=== PATIENT | male | born 1960 | race American Indian/Alaskan Native ===

== ENCOUNTER 2016-10-30 13:28 | Emergency (ER) | payer BC ==
[2016-10-30 14:43] LABS: Basophils % (Auto) 0.4 % (0.0-1.8); Eosinophils % (Auto) 0.1 % (0.0-4.3); Hemoglobin 14.2 gm/dl (11.8-15.2); Mean Corpuscular HGB Conc 34 % (32-34); Mean Corpuscular Hemoglobin 32 pg (28-32); Mean Corpuscular Volume 93 fl (84-94); Platelet Count 193 K/mm3 (140-440); Red Blood Count 4.52 M/mm3 (3.65-5.03); Red Cell Distribution Width 13.3 % (13.2-15.2); White Blood Count 7.5 K/mm3 (4.5-11.0)
[2016-10-30 14:49] LABS: Anion Gap 18 mmol/L; BUN/Creatinine Ratio 12.85; Blood Urea Nitrogen 9 mg/dL (9-20); Calcium 9.1 mg/dL (8.4-10.2); Carbon Dioxide 24 mmol/L (22-30); Chloride 97.3 mmol/L (98-107); Glucose 130 mg/dL (75-100); Potassium 3.3 mmol/L (3.6-5.0); Sodium 136 mmol/L (137-145)
[2016-10-30 14:55] LABS: Bacteria,Urine 2+ /HPF (Negative); Bilirubin,Urine NEG (Negative); Blood,Urine MOD (Negative); Ketones,Urine NEG (Negative); Leukocyte Esterase,Urine MOD (Negative); Mucus,Urine 3+ /HPF; Nitrite,Urine POS (Negative)
[2016-10-30] MEDS ORDERED: LEVAQUIN PO ONE (17:18)
[2016-10-30] MEDS ORDERED: TYLENOL PO ONE (17:18)
--- NOTE | 2016-10-30 17:19 | Emergency Department Report ---
ED N/V/D HPI - General Chief complaint: Nausea/Vomiting/Diarrhea Stated complaint: VIRUS, STOOL,VOMITTING Time Seen by Provider: 10/30/16 17:12 Source: patient Mode of arrival: Ambulatory Limitations: No Limitations - History of Present Illness Initial comments: This is a pleasant 55-year-old gentleman who describes 3 day history of nausea vomiting diarrhea. He's had low-grade fevers associated with this as well. He does not report any sick contacts or questionable foods. Been feeling well prior to this. He denies significant abdominal pain he denies hematochezia sincerely with this as well. MD complaint: nausea, vomiting, abdominal pain Severity: moderate Quality: cramping Consistency: intermittent Improves with: none Worsens with: eating - Related Data Previous Rx's Medication Instructions Recorded Last Taken Type Sulfamethoxazole/Trimethoprim 1 each PO BID #14 tablet 03/19/14 Unknown Rx [Bactrim Ds] Acyclovir [Zovirax Cap] 200 mg PO 5XD 5 Days 06/24/14 Unknown Rx Ciprofloxacin HCl [Ciprofloxacin 500 mg PO Q12HR #14 tab 10/30/16 Unknown Rx TAB] Ondansetron [Zofran TAB] 4 mg PO Q8HR PRN #5 tablet 10/30/16 Unknown Rx Allergies Allergy/AdvReac Type Severity Reaction Status Date / Time No Known Allergies Allergy Unverified 03/19/14 07:46 ED Review of Systems ROS: Stated complaint: VIRUS, STOOL,VOMITTING Other details as noted in HPI Comment: All other systems reviewed and negative Constitutional: fever. denies: chills Eyes: denies: eye pain, eye discharge, vision change ENT: denies: ear pain, throat pain Respiratory: denies: cough, shortness of breath, wheezing Cardiovascular: denies: chest pain, palpitations Endocrine: no symptoms reported Gastrointestinal: nausea, vomiting, diarrhea Genitourinary: denies: urgency, dysuria Musculoskeletal: denies: back pain, joint swelling, arthralgia Skin: denies: rash, lesions Neurological: denies: headache, weakness, paresthesias Psychiatric: denies: anxiety, depression Hematological/Lymphatic: denies: easy bleeding, easy bruising ED Past Medical Hx - Past Medical History Previous Medical History?: No - Surgical History Past Surgical History?: No - Social History Smoking Status: Current Every Day Smoker Substance Use Type: Alcohol - Medications Home Medications: Home Medications Medication Instructions Recorded Confirmed Last Taken Type Sulfamethoxazole/Trimethoprim 1 each PO BID #14 tablet 03/19/14 Unknown Rx [Bactrim Ds] Acyclovir [Zovirax Cap] 200 mg PO 5XD 5 Days 06/24/14 Unknown Rx Ciprofloxacin HCl [Ciprofloxacin 500 mg PO Q12HR #14 tab 10/30/16 Unknown Rx TAB] Ondansetron [Zofran TAB] 4 mg PO Q8HR PRN #5 tablet 10/30/16 Unknown Rx ED Physical Exam - General Limitations: No Limitations General appearance: alert, in no apparent distress - Head Head exam: Present: atraumatic, normocephalic - Eye Eye exam: Present: normal appearance - ENT ENT exam: Present: normal orophraynx, mucous membranes moist - Neck Neck exam: Present: normal inspection. Absent: lymphadenopathy - Respiratory Respiratory exam: Present: normal lung sounds bilaterally. Absent: respiratory distress, wheezes - Cardiovascular Cardiovascular Exam: Present: normal rhythm, tachycardia. Absent: systolic murmur, diastolic murmur, rubs, gallop - GI/Abdominal GI/Abdominal exam: Present: soft, tenderness, normal bowel sounds. Absent: guarding, rebound - Rectal Rectal exam: Present: deferred - Extremities Exam Extremities exam: Present: normal inspection - Back Exam Back exam: Present: normal inspection - Neurological Exam Neurological exam: Present: alert, oriented X3 - Psychiatric Psychiatric exam: Present: normal affect, normal mood - Skin Skin exam: Present: warm, dry, intact, normal color. Absent: rash ED Course Vital Signs 10/30/16 10/30/16 10/30/16 13:53 14:26 14:31 Temperature 100.6 F H 99.7 F H Pulse Rate 112 H 106 H Respiratory 20 16 16 Rate Blood Pressure 141/87 Blood Pressure 121/79 [Left] O2 Sat by Pulse 99 95 96 Oximetry 10/30/16 17:50 Temperature Pulse Rate 94 H Respiratory 17 Rate Blood Pressure Blood Pressure 123/78 [Left] O2 Sat by Pulse 98 Oximetry - Reevaluation(s) Reevaluation #1: Patient is nontoxic appearing here. Abdomen is quite soft I do not suspect surgical etiology. He is euvolemic here. Labs are noted. No specific significant electron abnormalities are noted. I am inclined to treat her with antibiotics given the urinalysis as well. I am a bit surprised to see the UTI given male. We'll treat with ciprofloxacin. I did offer IV fluids. Patient declined. We'll treat with orals. I feel he is safe for home. No concerning features are appreciated. ED Medical Decision Making - Lab Data Result diagrams: 10/30/16 14:16 10/30/16 14:16 Critical care attestation.: If time is entered above; I have spent that time in minutes in the direct care of this critically ill patient, excluding procedure time. ED Disposition Clinical Impression: Gastroenteritis UTI (urinary tract infection) Qualifiers: Urinary tract infection type: acute cystitis Hematuria presence: without hematuria Qualified Code(s): N30.00 - Acute cystitis without hematuria Disposition: DISCHARGED TO HOME OR SELFCARE Is pt being admited?: No Does the pt Need Aspirin: No Condition: Stable Instructions: Urinary Tract Infection in Men (ED), Acute Nausea and Vomiting ( ED) Additional Instructions: Gradually advance diet as tolerated. Drink plenty of fluids. Take tylenol for fevers. Prescriptions: Ciprofloxacin HCl [Ciprofloxacin TAB] 500 mg PO Q12HR #14 tab Ondansetron [Zofran TAB] 4 mg PO Q8HR PRN #5 tablet PRN Reason: Nausea Referrals: PRIMARY CARE, [Primary Care Provider] - 3-5 Days Forms: Work/School Release Form(ED) Time of Disposition: 17:22
[2016-10-30] MEDS ORDERED: ZOFRAN ODT PO ONE (17:21)
[2016-10-30 17:50] VITALS: BP 123/78
== END 2016-10-30 17:55 | disposition home or self-care (01) ==
LOC: ED 13:28
DX: K52.9 Noninfective gastroenteritis and colitis, unspecified (principal); N30.00 Acute cystitis without hematuria; F17.200 Nicotine dependence, unspecified, uncomplicated
CPT/HCPCS: 36415; 80048; 81001; 85025; 87076; 87086; 87186; 99283; Q0162

== ENCOUNTER 2017-09-01 00:39 | Emergency (ER) | payer SELFPAY ==
[2017-09-01] MEDS ORDERED: TYLENOL PO ONE (01:54)
[2017-09-01] MEDS ORDERED: TYLENOL ONE (01:55)
[2017-09-01] MEDS ORDERED: ZOFRAN ODT PO ONE (07:25)
[2017-09-01] MEDS ORDERED: MOTRIN PO ONE (07:25)
--- NOTE | 2017-09-01 07:28 | Emergency Department Report ---
- General Chief Complaint: Upper Respiratory Infection Stated Complaint: FLU SX Time Seen by Provider: 09/01/17 07:24 Source: patient Mode of arrival: Ambulatory Limitations: No Limitations - History of Present Illness Initial Comments: 56-year-old male past medical history hypertension, CHF, smoker presents with complaint of 2 days of sore throat cough and intermittent nausea with chills. Patient is awake alert and oriented 3 not in acute distress. Patient is concerned he has flulike symptoms. Last episode of vomiting was yesterday. Has been able to tolerate fluids without difficulty. Has not taken any medicines for his symptoms at home. Patient denies palpitations chest pain shortness of breath, dysuria hematuria or increased urinary frequency current fever or chills or body aches but did say he was experiencing yesterday. Patient denies abdominal pain at this time. States he had one episode of diarrhea yesterday. Patient also states that he is out of his current regimen of hypertension medicines. Requesting referral to primary doctor. MD Complaint: fever, cough, sore throat, rhinorrhea, nasal congestion Onset/Timin -: days(s) Severity: moderate Context: sick contacts Associated Symptoms: fever, chills, myalgias, rhinorrhea, cough Treatments Prior to Arrival: none - Related Data Previous Rx's Medication Instructions Recorded Last Taken Type Acetaminophen [Acetaminophen TAB] 325 mg PO Q6HR PRN #30 tablet 09/01/17 Unknown Rx AtorvaSTATin [Lipitor] 40 mg PO DAILY #14 tablet 09/01/17 Unknown Rx Carvedilol 25 mg PO BID #28 tablet 09/01/17 Unknown Rx Dextromethorphan Hb/Doxylamine 10 ml PO Q6H PRN #1 liquid 09/01/17 Unknown Rx [Safetussin Pm Liquid] Furosemide [Lasix TAB] 40 mg PO DAILY #14 tablet 09/01/17 Unknown Rx Losartan [Cozaar] 100 mg PO DAILY #14 tablet 09/01/17 Unknown Rx Oseltamivir [Tamiflu] 75 mg PO BID #10 cap 09/01/17 Unknown Rx Spironolactone 25 mg PO DAILY #14 tablet 09/01/17 Unknown Rx hydrALAZINE [Apresoline TAB] 25 mg PO TID #42 tablet 09/01/17 Unknown Rx Allergies Allergy/AdvReac Type Severity Reaction Status Date / Time No Known Allergies Allergy Unverified 03/19/14 07:46 ED Review of Systems ROS: Stated complaint: FLU SX Other details as noted in HPI Constitutional: denies: chills, fever Eyes: denies: eye pain, eye discharge, vision change ENT: throat pain. denies: ear pain Respiratory: cough. denies: shortness of breath, wheezing Cardiovascular: denies: chest pain, palpitations Endocrine: no symptoms reported Gastrointestinal: nausea. denies: abdominal pain, diarrhea Genitourinary: denies: urgency, dysuria Musculoskeletal: denies: back pain, joint swelling, arthralgia Skin: denies: rash, lesions Neurological: denies: headache, weakness, paresthesias Psychiatric: denies: anxiety, depression Hematological/Lymphatic: denies: easy bleeding, easy bruising ED Past Medical Hx - Past Medical History Previous Medical History?: No Hx Hypertension: Yes - Surgical History Past Surgical History?: No - Social History Smoking Status: Current Every Day Smoker Substance Use Type: Alcohol - Medications Home Medications: Home Medications Medication Instructions Recorded Confirmed Last Taken Type Acetaminophen [Acetaminophen TAB] 325 mg PO Q6HR PRN #30 tablet 09/01/17 Unknown Rx AtorvaSTATin [Lipitor] 40 mg PO DAILY #14 tablet 09/01/17 Unknown Rx Carvedilol 25 mg PO BID #28 tablet 09/01/17 Unknown Rx Dextromethorphan Hb/Doxylamine 10 ml PO Q6H PRN #1 liquid 09/01/17 Unknown Rx [Safetussin Pm Liquid] Furosemide [Lasix TAB] 40 mg PO DAILY #14 tablet 09/01/17 Unknown Rx Losartan [Cozaar] 100 mg PO DAILY #14 tablet 09/01/17 Unknown Rx Oseltamivir [Tamiflu] 75 mg PO BID #10 cap 09/01/17 Unknown Rx Spironolactone 25 mg PO DAILY #14 tablet 09/01/17 Unknown Rx hydrALAZINE [Apresoline TAB] 25 mg PO TID #42 tablet 09/01/17 Unknown Rx ED Physical Exam - General Limitations: No Limitations General appearance: alert, in no apparent distress - Head Head exam: Present: atraumatic, normocephalic - Eye Eye exam: Present: normal appearance, PERRL, EOMI - ENT ENT exam: Present: mucous membranes moist - Expanded ENT Exam Expanded Throat exam: Positive: tonsillar erythema (some tonsillar erythema on exam) - Neck Neck exam: Present: normal inspection - Respiratory Respiratory exam: Present: normal lung sounds bilaterally. Absent: respiratory distress - Cardiovascular Cardiovascular Exam: Present: regular rate, normal rhythm. Absent: systolic murmur, diastolic murmur, rubs, gallop - GI/Abdominal GI/Abdominal exam: Present: soft, normal bowel sounds - Rectal Rectal exam: Present: deferred - Extremities Exam Extremities exam: Present: normal inspection - Back Exam Back exam: Present: normal inspection - Neurological Exam Neurological exam: Present: alert, oriented X3 - Psychiatric Psychiatric exam: Present: normal affect, normal mood - Skin Skin exam: Present: warm, dry, intact, normal color. Absent: rash ED Course Vital Signs 09/01/17 09/01/17 09/01/17 01:48 05:08 07:00 Temperature 101.5 F H 98.8 F Pulse Rate 110 H Respiratory 16 Rate Blood Pressure 144/104 Blood Pressure [Right] O2 Sat by Pulse 97 Oximetry 09/01/17 09/01/17 07:58 08:43 Temperature 99.9 F H Pulse Rate 95 H Respiratory 16 16 Rate Blood Pressure Blood Pressure 140/93 [Right] O2 Sat by Pulse 97 Oximetry ED Medical Decision Making - Medical Decision Making A/P: Flulike illness, viral syndrome, asymptomatic hypertension 1-chest x-ray unremarkable, flu and strep swabs negative 2-based on patient's clinical symptoms and onset approximately within the last 48 hours it is possible patient may have influenza. As there is a current epidemic influenza I discussed the patient's symptoms and possibility of treatment with Tamiflu to decrease possible complications secondary to influenza and possibly speed up his recovery time. At this time patient states that he is interested in taking Tamiflu. I discussed the possible side effects of Tamiflu with the patient and current CDC recommendations. As patient does have history of CHF he is included in the category of chronic lungs/heart disease https://www.cdc.gov/flu/professionals/antivirals/summary-clinicians.htm 3-Safe Tussin cough syrup for hypertensive patients, throat lozenges, Tylenol when necessary 4- vital signs stable for discharge and patient tolerating by mouth fluid without difficulty 5- patient currently has no chest pain shortness of breath lower extremity are peripheral extremity swelling chest discomfort and palpitations blurred vision or headache. Patient ran out of his hypertension medicines one week ago I refilled patient's hypertension and CHF medicines. Patient claims he is on a regimen of sprionolactone, furosemide, carvedilol, hydralazine, losartan and has emptied bottles on him. Also takes atorvastatin. I provided pt him a 2 week course and advised him to follow up with primary care soon as possible. I checked for drug interactions between Tamiflu and his baseline home medicines https://reference.[employer]/drug-interactionchecker. No interaction noted between Tamiflu and these medicines however there are some interactions between some of his hypertension medicines. I advised patient to monitor his blood pressure carefully all taking these medicines and to refrain from taking them his blood pressure drops below his baseline or below 100/70. Patient stated he understood my instructions. I advised the patient to discuss this with his primary care doctor when he follows up. Critical care attestation.: If time is entered above; I have spent that time in minutes in the direct care of this critically ill patient, excluding procedure time. ED Disposition Clinical Impression: Flu-like symptoms, Viral syndrome, Medication refill Disposition: DC-01 TO HOME OR SELFCARE Is pt being admited?: No Does the pt Need Aspirin: No Condition: Stable Instructions: Influenza (ED), Viral Syndrome (ED) Prescriptions: Acetaminophen [Acetaminophen TAB] 325 mg PO Q6HR PRN #30 tablet PRN Reason: Fever AtorvaSTATin [Lipitor] 40 mg PO DAILY #14 tablet Carvedilol 25 mg PO BID #28 tablet Dextromethorphan Hb/Doxylamine [Safetussin Pm Liquid] 10 ml PO Q6H PRN #1 liquid PRN Reason: Cough Furosemide [Lasix TAB] 40 mg PO DAILY #14 tablet hydrALAZINE [Apresoline TAB] 25 mg PO TID #42 tablet Losartan [Cozaar] 100 mg PO DAILY #14 tablet Oseltamivir [Tamiflu] 75 mg PO BID #10 cap Spironolactone 25 mg PO DAILY #14 tablet Referrals: [facility] [Outside] - 3-5 Days [facility] [Outside] - 3-5 Days SONAL PATEL MD [Staff Physician] - 3-5 Days Forms: Work/School Release Form(ED) Time of Disposition: 09:17
--- NOTE | 2017-09-01 08:00 | XRay Report ---
ROUTINE CHEST, TWO VIEWS: HISTORY: Cough. The trachea, heart, mediastinal contour, lung prasad and bony thorax are unremarkable. IMPRESSION: Unremarkable chest x-ray.
[2017-09-01 08:44] VITALS: BP 140/93
== END 2017-09-01 10:04 | disposition home or self-care (01) ==
LOC: ED 00:39
DX: B34.9 Viral infection, unspecified (principal); M79.1 Myalgia; I11.0 Hypertensive heart disease with heart failure; I50.9 Heart failure, unspecified; F17.200 Nicotine dependence, unspecified, uncomplicated
CPT/HCPCS: 71046; 87116; 87400; 87430; Q0162